=== PATIENT | female | born 1980 | race Caucasian/White ===

== ENCOUNTER 2021-12-04 12:32 | Emergency (ER) | payer OTHER | END 2021-12-04 14:05 | disposition home or self-care (01) | LOC: DL.ED 12:32 | DX: S06.0X1A Concussion with loss of consciousness of 30 minutes or less, initial encounter (principal); E66.9 Obesity, unspecified; Z68.36 Body mass index [BMI] 36.0-36.9, adult; W00.0XXA Fall on same level due to ice and snow, initial encounter | CPT/HCPCS: 70450; 99284-25 ==

== ENCOUNTER 2025-06-15 00:54 | Emergency (ER) | payer OTHER | END 2025-06-15 02:08 | disposition left against medical advice (07) | LOC: DL.ED 00:54 | DX: R04.0 Epistaxis (principal); Z79.899 Other long term (current) drug therapy | CPT/HCPCS: 99282; 99283; A9270-GY ==

== ENCOUNTER 2025-07-19 05:24 | Day surgery (SDC) | payer OTHER ==
[2025-07-19] MEDS ORDERED: Benzocaine 20% Topical Spray UD MUCMEM ONE (05:25)
[2025-07-19] MEDS ORDERED: Propofol 200 MG/20 ML SDV IV ONE (05:25)
[2025-07-19] MEDS ORDERED: Lactated Ringers 1,000 ML IV ONE (05:25)
[2025-07-19] MEDS: Lactated Ringers 1,000 ML IV SCH (05:45)
[2025-07-19] MEDS ORDERED: Propofol 200 MG/20 ML SDV ONE (05:52)
[2025-07-19] MEDS ORDERED: Benzocaine 20% Topical Spray UD ONE (05:52)
== END 2025-07-19 08:30 | disposition home or self-care (01) ==
LOC: DL.ENDO 05:24
PROVIDERS: ATTEND Internal Medicine Gastroenterology
DX: K25.9 Gastric ulcer, unspecified as acute or chronic, without hemorrhage or perforation (principal); E66.9 Obesity, unspecified; Z68.34 Body mass index [BMI] 34.0-34.9, adult
CPT/HCPCS: 00731; A9270-GY; J2704; J7120

== ENCOUNTER 2025-08-02 06:28 | Day surgery (SDC) | payer OTHER ==
[2025-08-02] MEDS ORDERED: Lactated Ringers 1,000 ML IV ONE (06:29)
[2025-08-02] MEDS ORDERED: Propofol 200 MG/20 ML SDV IV ONE (06:29)
[2025-08-02] MEDS: Lactated Ringers 1,000 ML IV SCH (07:49)
== END 2025-08-02 09:46 | disposition home or self-care (01) ==
LOC: DL.ENDO 06:28
PROVIDERS: ATTEND Internal Medicine Gastroenterology
DX: Z12.11 Encounter for screening for malignant neoplasm of colon (principal); K57.30 Diverticulosis of large intestine without perforation or abscess without bleeding; F41.1 Generalized anxiety disorder; F32.A Depression, unspecified; E66.09 Other obesity due to excess calories; Z68.34 Body mass index [BMI] 34.0-34.9, adult; Z79.899 Other long term (current) drug therapy
CPT/HCPCS: 00812; 45378; J2704; J7120